=== PATIENT | female | born 1940 | race Two or more races ===

== ENCOUNTER 2017-07-21 08:13 | Outpatient (CLI) | payer OTHER | END 2017-07-21 08:17 | disposition home or self-care (01) | LOC: SONOGRAMA 08:13 | DX: C54.9 Malignant neoplasm of corpus uteri, unspecified (principal); C54.1 Malignant neoplasm of endometrium ==

== ENCOUNTER → 2017-07-30 | Outpatient (CLI) | payer OTHER | END | disposition home or self-care (01) | LOC: MAMO-SONO 09:59 | DX: Z12.31 Encounter for screening mammogram for malignant neoplasm of breast (principal); Z87.898 Personal history of other specified conditions; N64.59 Other signs and symptoms in breast ==

== ENCOUNTER → 2017-12-13 07:37 | Outpatient (CLI) | payer OTHER | END | disposition home or self-care (01) | LOC: LAB 07:37 | DX: D64.89 Other specified anemias (principal); D78.89 Other postprocedural complications of the spleen; D68.8 Other specified coagulation defects; N39.0 Urinary tract infection, site not specified; R82.79 Other abnormal findings on microbiological examination of urine; I10 Essential (primary) hypertension; R07.89 Other chest pain ==

== ENCOUNTER 2017-12-28 05:20 | Day surgery (SDC) | payer OTHER ==
[~2017-12-28 05:20] MED LIST: AMILODIPINE PO
[2017-12-28] MEDS ORDERED: ULTRACET PO (10:07)
[2017-12-28] MEDS ORDERED: MACROBID 100 M100 MG PO (10:07)
== END 2017-12-28 11:30 | disposition home or self-care (01) ==
LOC: CIR.AMB 05:20
DX: N81.3 Complete uterovaginal prolapse (principal)

== ENCOUNTER 2019-10-14 09:37 | Emergency (ER) | payer OTHER ==
[~2019-10-14] VITALS: Ht 144.8 cm; Wt 59.9 kg
[~2019-10-14 09:37] MED LIST changes: +MACROBID 100 M100 MG PO; +ULTRACET PO
[2019-10-14] MEDS ORDERED: NORVASC5 MG (09:48)
[2019-10-14] MEDS ORDERED: CLOBETASOL EMOL15 GM TOP (10:37)
[2019-10-14] MEDS ORDERED: BENADRYL25 MG PO (10:46)
== END 2019-10-14 10:50 | disposition home or self-care (01) ==
LOC: ER 09:37
DX: L23.7 Allergic contact dermatitis due to plants, except food (principal)

== ENCOUNTER 2019-11-13 08:03 | Outpatient (CLI) | payer OTHER ==
[~2019-11-13 08:03] MED LIST changes: +BENADRYL25 MG PO; +CLOBETASOL EMOL15 GM TOP; +NORVASC5 MG
== END 2019-11-13 08:12 | disposition home or self-care (01) ==
LOC: LAB 08:03
PROVIDERS: ATTEND Obstetrics & Gynecology Gynecology
DX: I10 Essential (primary) hypertension (principal); R07.89 Other chest pain; D64.89 Other specified anemias; E78.89 Other lipoprotein metabolism disorders; N39.0 Urinary tract infection, site not specified

== ENCOUNTER 2019-11-28 05:42 | Day surgery (SDC) | payer OTHER ==
[~2019-11-28 05:42] MED LIST changes: +CALTRATE GUMMY1 EACH PO
[2019-11-28] MEDS ORDERED: ULTRACET PO (13:08)
[2019-11-28] MEDS ORDERED: MACROBID 100 M100 MG PO (13:08)
== END 2019-11-28 20:24 | disposition home or self-care (01) ==
LOC: CIR.AMB 05:42
PROVIDERS: ATTEND Obstetrics & Gynecology Gynecology
DX: N81.3 Complete uterovaginal prolapse (principal); Z20.828 Contact with and (suspected) exposure to other viral communicable diseases

== ENCOUNTER 2019-12-18 07:41 | Outpatient (CLI) | payer OTHER | END 2019-12-18 07:45 | disposition home or self-care (01) | LOC: MAMO-SONO 07:41 | PROVIDERS: ATTEND Internal Medicine Cardiovascular Disease | DX: N60.02 Solitary cyst of left breast (principal); Z12.31 Encounter for screening mammogram for malignant neoplasm of breast ==

== ENCOUNTER 2020-12-26 10:11 | Outpatient (CLI) | payer OTHER | END 2020-12-26 10:22 | disposition home or self-care (01) | LOC: MAMO-SONO 10:11 | PROVIDERS: ATTEND Internal Medicine Cardiovascular Disease | DX: R92.1 Mammographic calcification found on diagnostic imaging of breast (principal); N64.89 Other specified disorders of breast; Z12.31 Encounter for screening mammogram for malignant neoplasm of breast; N60.02 Solitary cyst of left breast ==